=== PATIENT | male | born 1955 | race Caucasian/White ===

== ENCOUNTER 2018-09-26 11:00 | Emergency (ER) | payer OTHER ==
--- NOTE | 2018-09-26 11:33 | ERPHSYRPT ---
- History of Present Illness Time Seen by Provider: 09/26/18 11:27 Source: patient Exam Limitations: no limitations Physician History: 63-year-old white male arrives with complaint of a subconjunctival hematoma on his medial rightmsclera he states he woke up this morning he denies any injury. Patient is not having blurry vision is not having eye pain. Past medical history patient denies patient apparently had been having some problems with his balance she has been seen by his family doctor yesterday secondary to this and an MRI has been ordered. Past surgical history appendectomy Social history patient denies tobacco alcohol or illicit drug use Timing/Duration: today (patient woke up with this) Location: right eye Severity: mild Apparent Injury: no Associated Symptoms: other (subconjunctival hemorrharage right eye), No pain, No burning, No itching, No sensitivity to light, No redness, No matting, No eyelid swelling, No foreign body sensation, No decreased vision, No blurred vision, No double vision Visual Assistive Devices: Glasses Chemical Exposure: No Trauma: No Welding Arc/Tanning Bed Exposure: No - Review of Systems Constitutional: No Fever, No Chills Eyes: Eye Redness, Other (Subconjunctival hematoma right medial sclera), No Discharge, No Eye Pain, No Itchy, No Photophobia, No Tearing, No Vision Changes , No Double Vision, No Foreign Body Sensation Ears, Nose, & Throat: No Symptoms Respiratory: No Cough, No Dyspnea Cardiac: No Chest Pain, No Edema, No Syncope Abdominal/Gastrointestinal: No Abdominal Pain, No Nausea, No Vomiting, No Diarrhea Genitourinary Symptoms: No Dysuria Musculoskeletal: No Back Pain, No Neck Pain Skin: No Symptoms, No Rash Neurological: No Dizziness, No Focal Weakness, No Sensory Changes Psychological: No Symptoms Endocrine: No Symptoms All Other Systems: Reviewed and Negative - Past Medical History Pertinent Past Medical History: No - Past Surgical History Gastrointestinal: Appendectomy - Nursing Vital Signs Nursing Vital Signs: Initial Vital Signs Temperature 98.4 F 09/26/18 11:04 Pulse Rate 57 L 09/26/18 11:04 Respiratory Rate 16 09/26/18 11:04 Blood Pressure 154/92 09/26/18 11:04 O2 Sat by Pulse Oximetry 100 09/26/18 11:04 Pain Scale Pain Intensity 0 - Physical Exam General Appearance: no apparent distress, alert Vision Acuity Degree Evaluation Phase: Corrected Vision Acuity Right Eye: 20/30 Vision Acuity Left Eye: 20/30 Eye Exam: right eye: conjunctival hemorrhage (subconjunctival hematoma right medial eye), left eye: normal inspection, bilateral eye: PERRL Ears, Nose, Throat Exam: normal ENT inspection, TMs normal, pharynx normal, moist mucous membranes Neck Exam: normal inspection, non-tender, supple, full range of motion Respiratory Exam: normal breath sounds, chest tenderness, lungs clear, No respiratory distress, No airway intact (Dr. 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 He does not know of any injury is not having eye pain. He is not having vision changes the patient will does wear glasses vision is 20/ 30 bilaterally. Patient with a subconjunctival hematoma on the medial aspect of the right eye. Patient does give a history of feeling off balance recently he apparently had seen Dr. Wolf for this yesterday and has an MRI scheduled. Patient with mild elevation in blood pressure otherwise stable vital signs. He has normal neurologic exam. Eyes PERRLA EOMI fundi are unremarkable. There are no foreign bodies. There is no conjunctivitis. Patient with a right medial subconjunctival hematoma. Patient seems to be somewhat concerned over this site right informed the patient that people gets these sometimes with coughing. and there is no specific treatment here in the emergency room I've contacted Dr. Enriquez special technical operations officer here in [place]. He has agreed to see the patient he will see him at 2:00 this afternoon patient appears to be stable. - Departure Time of Disposition: 11:49 Departure Disposition: Home Clinical Impression: Subconjunctival hematoma Qualifiers: Laterality: right Qualified Code(s): H11.31 - Conjunctival hemorrhage, right eye Condition: Fair Critical Care Time: No Referrals: ZANDER WOLF MD [Primary Care Provider] - Additional Instructions: Return home. Follow-up with Dr. Enriquez special technical operations officer at 2:00 this afternoon. Phone number [phone]. Return for acute distress or for severe symptoms. MRI as scheduled by Dr. Wolf. Continue to follow-up with Dr. Wolf. Return for acute distress or for severe symptoms.
[2018-09-26 12:06] VITALS: BP 150/100; PULSE 78; O2SAT 98
== END 2018-09-26 12:10 | disposition home or self-care (01) ==
LOC: ED 11:00
DX: H11.31 Conjunctival hemorrhage, right eye (principal)
CPT/HCPCS: 99283

== ENCOUNTER 2022-04-20 06:31 | Day surgery (SDC) | payer MEDICARE, OTHER ==
[2022-04-20] MEDS ORDERED: Lactated Ringers 1,000 ML IV SCH (07:00)
[2022-04-20] MEDS ORDERED: Xylocaine-Mpf 2% 5 Ml Vial ONE (07:45)
[2022-04-20] MEDS ORDERED: DIPRIVAN 200 MG/20 ML IV ONE ×2 (07:45→08:19)
[2022-04-20] MEDS ORDERED: ATROPINE SULFATE 1MG ONE (08:14)
[2022-04-20 09:11] VITALS: O2SAT 97
[2022-04-20 09:15] VITALS: BP 132/80; PULSE 82
--- NOTE | 2022-04-20 11:22 | OP ---
SURGERY DATE/TIME: 04/20/2022 0800 PREOPERATIVE DIAGNOSIS: Positive Cologuard. POSTOPERATIVE DIAGNOSES: 1) Large distal sigmoid colon polyp. 2) Small rectal polyp. PROCEDURE: Diagnostic colonoscopy. SURGEON: Henrry Sandy M.D. ANESTHESIA: MAC by Rj Arenas CRNA. ESTIMATED BLOOD LOSS: Minimal. SPECIMENS: 1) Hot snare polypectomy from distal sigmoid colon. 2) Cold forceps polypectomy from rectum. DESCRIPTION OF PROCEDURE: After informed written consent was obtained, the patient was taken to the endoscopy suite. Anesthesia was titrated to desired level of consciousness. Digital rectal exam showed normal sphincter tone and no internal lesions. The scope was inserted into the rectum and sequentially the entire colonic mucosa was traversed. The level of cecum was reached and verified with direct visualization of the ileocecal valve. There was a large sessile polyp in the distal sigmoid colon which was encountered upon entry. Snare was placed around it. It was cauterized at the base and removed in its entirety. It was too large to go through the scope therefore it was removed, retrieved from the end of the scope and the scope was advanced back in and again the level of the cecum was reached verified with direct visualization of the ileocecal valve. Upon withdrawal careful mucosal inspection revealed no other gross abnormalities. The polypectomy site was hemostatic. The entire lesion appeared to be adequately removed. There was a small, flat polyp in the rectum which was removed with cold forceps with minimal blood loss. No other lesions were encountered. Retroflexion showed no other internal lesions. The scope was removed. The patient was transferred to the recovery room in good condition. I have advised him to follow up in two weeks for pathology results.
== END 2022-04-20 09:25 | disposition home or self-care (01) ==
LOC: SDC 06:31
PROVIDERS: ATTEND Family Medicine
DX: R19.5 Other fecal abnormalities (principal); K63.5 Polyp of colon; K62.1 Rectal polyp
CPT/HCPCS: J0461; J2704